=== PATIENT | male | born 2000 | race Caucasian/White ===

== ENCOUNTER 2019-10-28 17:42 | Emergency (ER) | payer SELFPAY ==
--- NOTE | 2019-10-28 18:58 | ER Document Report ---
HPI - HPI Time Seen by Provider: 10/28/19 18:40 Onset: Yesterday Onset/Duration: Gradual Quality of pain: Achy Severity: Moderate Pain Level: 4 Associated Symptoms: None. denies: Fever, Nausea Exacerbated by: Deep breathing, Food Relieved by: Denies Similar symptoms previously: Yes - Dentalgia - CONSTITUTIONAL Constitutional: REPORTS: Fever. DENIES: Chills Past Medical History - General Information source: Patient - Social History Smoking Status: Never Smoker Cigarette use (# per day): No Chew tobacco use (# tins/day): No Smoking Education Provided: No Frequency of alcohol use: Rare Drug Abuse: None Family History: Reviewed & Not Pertinent Patient has suicidal ideation: No Patient has homicidal ideation: No Psychiatric Medical History: Reports: Hx Attention Deficit Hyperactivity Disorder, Hx Depression - Immunizations Immunizations up to date: Yes Vertical Provider Document - CONSTITUTIONAL Agree With Documented VS: Yes - INFECTION CONTROL TRAVEL OUTSIDE OF THE [place] IN LAST 30 DAYS: No - HEENT HEENT: Atraumatic, Normocephalic, PERRLA, Pharyngeal Erythema - NECK Neck: Normal Inspection - RESPIRATORY Respiratory: Breath Sounds Normal - CARDIOVASCULAR Cardiovascular: Regular Rate - GI/ABDOMEN Gastrointestinal: Abdomen Soft, Abdomen Non-Tender Course - Vital Signs Vital signs: Temp Pulse Resp BP Pulse Ox 99.0 F 77 16 159/90 H 99 10/28/19 17:50 10/28/19 17:50 10/28/19 17:50 10/28/19 17:50 10/28/19 17:50 - Transfer of Care Notes: 10/28/19 18:54 This is a 19-year-old male who presented to the emergency room today stating he has lot of discomfort to his right lower rear molar he had been told in the past that his wisdom tooth is coming in and had not been able to get that resolved as of yet. He has pain and inflammation to the area he noted some drainage yesterday. There is no abscess currently visible. Discharge - Discharge Clinical Impression: Mercedes teeth removed Qualifiers: Tooth loss class: unspecified tooth loss Qualified Code(s): K08.409 - Partial loss of teeth, unspecified cause, unspecified class Condition: Good Disposition: HOME, SELF-CARE Instructions: Penicillin V K ([facility]), Toothache ([facility]) Prescriptions: Naproxen Sodium 220 mg PO Q12 #20 tablet Penicillin V Potassium [Penicillin Vk 500 mg Tablet] 500 mg PO BID #20 tablet Referrals: QI FLEMING MD [Primary Care Provider] - Follow up as needed
[2019-10-28 19:38] VITALS: BP 145/97
== END 2019-10-28 19:37 | disposition home or self-care (01) ==
LOC: ER 17:42
DX: K08.409 Partial loss of teeth, unspecified cause, unspecified class (principal); K08.89 Other specified disorders of teeth and supporting structures; R50.9 Fever, unspecified
CPT/HCPCS: 99282

== ENCOUNTER 2020-03-02 19:46 | Emergency (ER) | payer SELFPAY ==
[2020-03-02] MEDS ORDERED: ACETAMINOPHEN 325 MG TABLET PO ONE (22:06)
[2020-03-02 22:33] LABS: HEMATOCRIT 44.1 % (37.9-51.0); HEMOGLOBIN 15.5 g/dL (13.5-17.0); MEAN CORPUSCULAR HEMOGLOBIN 30.5 pg (27.0-33.4); MEAN CORPUSCULAR HGB CONC 35.1 g/dL (32.0-36.0); MEAN CORPUSCULAR VOLUME 87 fl (80-97); PLATELET COUNT 207 10^3/uL (150-450); RED BLOOD COUNT 5.08 10^6/uL (4.35-5.55); RED CELL DISTRIBUTION WIDTH 12.4 % (11.5-14.0)
[2020-03-02 22:36] LABS: ALBUMIN 4.9 g/dL (3.5-5.0); ALKALINE PHOSPHATASE 88 U/L (38-126); ANION GAP 10 (5-19); ASPARTATE AMINO TRANSFERASE 23 U/L (17-59); BILIRUBIN,DIRECT 0.4 mg/dL (0.0-0.4); BILIRUBIN,TOTAL 3.3 mg/dL (0.2-1.3); BLOOD UREA NITROGEN 15 mg/dL (7-20); CARBON DIOXIDE 24 mmol/L (22-30); CHLORIDE 101 mmol/L (98-107); GLUCOSE 129 mg/dL (75-110); POTASSIUM 4.1 mmol/L (3.6-5.0); TOTAL PROTEIN 8.8 g/dL (6.3-8.2)
[2020-03-02 23:01] LABS: ABSOLUTE LYMPHOCYTES# (MANUAL) 0.8 10^3/uL (0.5-4.7); ABSOLUTE MONOCYTES # (MANUAL) 1.4 10^3/uL (0.1-1.4); BAND NEUTROPHILS % (MANUAL) 5 % (3-5); BASOPHILS % (MANUAL) 0 % (0-2); EOSINOPHILS % (MANUAL) 0 % (0-6); LYMPHOCYTES % (MANUAL) 3 % (13-45); MONOCYTES % (MANUAL) 5 % (3-13); SEGMENTED NEUTROPHILS % (MAN) 87 % (42-78); TOTAL CELLS COUNTED 100
[2020-03-02 23:03] LABS: PLATELET COMMENT ADEQUATE; RBC MORPHOLOGY COMMENT NORMO-CYTIC/CHROMIC
--- NOTE | 2020-03-03 01:20 | RADIOLOGY REPORT (SQ) ---
EXAM DESCRIPTION: X-RAY CHEST- One View CLINICAL HISTORY: Cough COMPARISON: None available TECHNIQUE: Single view of the chest. FINDINGS: There are no discrete air space infiltrates, pneumothoraces or pleural effusions. The pulmonary vascularity is normal. The cardiomediastinal silhouette is normal in size. No suspicious lytic or blastic osseous lesions are identified. IMPRESSION: There are no acute lung parenchymal findings.
[2020-03-03 01:46] LABS: APPEARANCE,URINE CLOUDY; BILIRUBIN,URINE NEGATIVE (NEGATIVE); COLOR,URINE AMBER; GLUCOSE, URINE NEGATIVE (NEGATIVE); KETONES,URINE TRACE mg/dL (NEGATIVE); LEUKOCYTE ESTERASE,URINE TRACE (NEGATIVE); NITRITE,URINE NEGATIVE (NEGATIVE); PROTEIN,URINE >=500 mg/dL (NEGATIVE); URINE SPECIFIC GRAVITY 1.007; UROBILINOGEN,URINE NEGATIVE mg/dL (<2.0)
[2020-03-03] MEDS ORDERED: CEFTRIAXONE INJ 250 MG VIAL IM ONE (02:35)
[2020-03-03] MEDS ORDERED: AZITHROMYCIN 250 MG TABLET PO ONE (02:36)
[2020-03-03] MEDS ORDERED: LIDOCAINE 1% INJ (10 MG/ML) 10 ML MDV ONE (02:51)
[2020-03-03 03:05] VITALS: BP 133/82
--- NOTE | 2020-03-03 03:07 | ER Document Report ---
ED General - General Chief Complaint: Fever Stated Complaint: FEVER, SHORTNESS OF BREATH, MUSCLE PAIN, NAUSEA Time Seen by Provider: 03/02/20 22:06 Notes: 20-year-old male presenting today with sore throat, fever, non productive cough, chills for approximately 48 hours after recent travel from [place]. Denies any abdominal pain, nausea, vomiting, flank pain, pain with urination or additional symptoms. Has not taken any medications to alleviate his symptoms. TRAVEL OUTSIDE OF THE [place] IN LAST 30 DAYS: No - Related Data Allergies/Adverse Reactions: No Known Allergies Allergy (Unverified 11/09/14 00:59) Past Medical History - Social History Smoking Status: Never Smoker Frequency of alcohol use: Social Drug Abuse: None Family History: Reviewed & Not Pertinent Patient has homicidal ideation: No Psychiatric Medical History: Reports: Hx Attention Deficit Hyperactivity Disord er, Hx Depression - Immunizations Immunizations up to date: Yes Review of Systems - Review of Systems Constitutional: See HPI EENT: See HPI Cardiovascular: No symptoms reported Respiratory: See HPI Gastrointestinal: No symptoms reported Genitourinary: No symptoms reported Male Genitourinary: No symptoms reported Musculoskeletal: See HPI Skin: No symptoms reported Physical Exam - Vital signs Vitals: Temp Pulse Resp BP Pulse Ox 102.7 F H 107 H 17 123/70 97 03/02/20 19:53 03/02/20 19:53 03/02/20 19:53 03/02/20 19:53 03/02/20 19:53 Interpretation: No: Tachycardic, Tachypneic, Febrile - Notes Notes: Adult General: GENERAL: Alert, interacts well. No acute distress HEAD: Normocephalic, atraumatic EYES: Extraocular movements intact. ENT: Airway patent. Nares patent. NECK: Full range of motion. Supple. Trachea midline. No lymphadenopathy. LUNGS: Clear to auscultation bilaterally, no wheezes, rales, or rhonchi. No respiratory distress. Nontender chest wall. HEART: Regular rate and rhythm. No murmurs, rubs or gallops. ABDOMEN: Soft, nontender. Nondistended. (-) Milton sign. Bowel sounds present in all 4 quadrants. No rebound, guarding or masses. GENITOURINARY: Deferred EXTREMITIES: Moves all 4 extremities spontaneously. BACK: Moves all extremities with full range of motion. NEUROLOGICAL: Alert and oriented x3. Normal speech. Strength 5/ 5 in all extremities. PSYCH: Normal affect, normal mood. SKIN: Warm, dry, normal turgor. No rashes or lesions noted. Course - Re-evaluation Re-evalutation: 03/03/20 03:03 Patient reports an improvement in his pain, fever and sore throat after receiving tylenol. Patient states he just went to the bathroom and noticed his urine was bloody. Patients CBC, cmp and cxr are all unremarkable. Urinalysis jacque ws positive for blood and positive for WBCs. Patient does report he has had unprotected intercourse recently. He continues to deny any flank pain, pain with urination or penile discharge. I will go ahead and treat patient prophylactically with azithromycin and Rocephin at this time. I anticipate that should resolve the WBC'a in the urine. He was instruted to follow up with the emergency department for worsening symptoms and the development of new symptoms. I consulted Dr. palomino and he is in agreeance with the plan. Discussed with patient we will be testing for covid and being a PUI. Patient acknowledged and verbalized understanding of instructions and plan. All questions answered. - Vital Signs Vital signs: Temp Pulse Resp BP Pulse Ox 99.6 F 104 H 17 133/82 H 100 03/03/20 03:03 03/03/20 03:03 03/02/20 19:53 03/03/20 03:03 03/03/20 03:03 - Laboratory Result Diagrams: 03/02/20 21:20 03/02/20 21:20 Laboratory results interpreted by me: 03/02/20 03/02/20 03/03/20 21:20 21:20 01:31 WBC 27.0 H Seg Neuts % (Manual) 87 H Lymphocytes % (Manual) 3 L Abs Neuts (Manual) 24.8 H Sodium 135.4 L Glucose 129 H Total Bilirubin 3.3 H Total Protein 8.8 H Urine Protein >=500 H Urine Ketones TRACE H Urine Blood LARGE H Ur Leukocyte Esterase TRACE H Discharge - Discharge Clinical Impression: Abnormal urinalysis, Prophylactic antibiotic Condition: Stable Disposition: HOME, SELF-CARE Instructions: Acetaminophen, Fever ([facility]) Additional Instructions: Your urinalysis showed signs of infection. I recommend that you follow-up with your primary care provider for repeat evaluation of your urinalysis to ensure resolution. You have been treated empirically for STI. This may be contributing to your abnormal urinalysis. You can continue to take tylenol for your symptoms as this helped alleviate your symptoms. Again please follow-up with a primary care provider to repeat a urinalysis. If you develop any new symptoms or worsening symptoms please return to the emergency department for additional evaluation.
== END 2020-03-03 03:22 | disposition home or self-care (01) ==
LOC: ER 19:46
DX: R82.90 Unspecified abnormal findings in urine (principal); R50.9 Fever, unspecified; R06.02 Shortness of breath; M79.10 Myalgia, unspecified site; R11.0 Nausea
CPT/HCPCS: 99283; 96372; 36415; 87070; 87880; 85025; 87635; 87077; 80053; 81001; 71045; J0696; C9803